=== PATIENT | female | born 2000 | race Caucasian/White ===

== ENCOUNTER 2019-05-07 10:39 | Emergency (ER) | payer SELFPAY ==
[2019-05-07 10:58] VITALS: BP 129/79
[2019-05-07 11:23] LABS: EOS # 0.1 (0.04-0.40); HEMATOCRIT 37.9 % (35.0-45.0); HEMOGLOBIN 11.7 g/dL (12.0-15.0); LYMPH# 1.5 (1.20-3.40); MEAN CELL VOLUME 87 fl (78-95); MEAN CORPUSCULAR HEMOGLOBIN 27 pg (26-32); MEAN CORPUSCULAR HGB CONC 31 g/dL (33-37); MEAN PLATELET VOLUME 10.7 fl (7.4-10.4); MONO # 0.4 (0.10-0.60); NEU # 2.8 (1.40-6.50); PLATELET COUNT 279 K/mm3 (130-400); RED BLOOD COUNT 4.37 M/mm3 (4.10-5.30); RED CELL DISTRIBUTION WIDTH 16.2 % (11.5-14.5); WHITE BLOOD COUNT 4.8 K/mm3 (4.8-10.8)
[2019-05-07 11:31] LABS: ALBUMIN 4.5 g/dL (3.5-5.0)
[2019-05-07 11:32] LABS: SODIUM 142 mmol/L (136-145)
[2019-05-07 11:34] LABS: GLUCOSE 90 mg/dL (65-105); TOTAL PROTEIN 7.1 g/dL (6.4-8.3)
[2019-05-07 11:35] LABS: CARBON DIOXIDE 27 mmol/L (22-29)
[2019-05-07 11:36] LABS: TOTAL BILIRUBIN 0.2 mg/dL (0.2-1.2)
[2019-05-07 11:39] LABS: AST-SGOT 19 U/L (5-34)
[2019-05-07 11:41] LABS: ALT/SGPT 17 U/L (0-55)
[2019-05-07 12:02] LABS: ACETAMINOPHEN < 1 ug/mL; ALCOHOL IN-HOUSE < 10 mg/dL (<10)
[2019-05-07 12:03] LABS: PH-URINE 7.5 (5.0 - 8.0); URINE APPEARANCE CLOUDY; URINE BILIRUBIN NEGATIVE (NEGATIVE); URINE BLOOD NEGATIVE (NEGATIVE); URINE COLOR YELLOW; URINE GLUCOSE NEGATIVE (NEGATIVE); URINE KETONE NEGATIVE (NEGATIVE); URINE LEUKOCYTE ESTERASE NEGATIVE (NEGATIVE); URINE NITRATE NEGATIVE (NEGATIVE); URINE PROTEIN(semi-quant) NEGATIVE (NEGATIVE); URINE UROBILINOGEN NORMAL (NORMAL); URINE WBC 0-1 /hpf (0-3)
== END 2019-05-07 15:30 | disposition home or self-care (01) ==
LOC: ED 10:39
PROVIDERS: Nurse Practitioner Primary Care
DX: F20.9 Schizophrenia, unspecified (principal)

== ENCOUNTER → 2019-10-14 | Outpatient (CLI) | payer SELFPAY | LOC: LAB 16:24 | DX: Z79.899 Other long term (current) drug therapy (principal) ==